=== PATIENT | female | born 1970 | race Hispanic/Latino ===

== ENCOUNTER → 2019-05-10 | Day surgery (SDC) | payer BC ==
[2019-05-08 11:12] LABS: INR 0.82; PROTHROMBIN TIME 11.8 seconds (11.9-14.5)
[2019-05-08 11:13] LABS: PARTIAL THROMBOPLASTIN TIME 29.1 seconds (23.8-35.5)
[~2019-05-10] MED LIST: ACETAMINOPHEN 1000 MG/100 ML 100 ML IV ONE; ALENDRONATE SOD70 MG PO; BUPIVACAINE HCL 0.5% INJ 30 ML VIAL INJ ONE; CALTRATE 600 W1 EACH PO; DEXAMETHASONE SOD PHOS INJ 4 MG/ML VIAL ONE; FENTANYL CITRATE/PF 100MCG/2 ML INJ ONE; KETOROLAC TROMETHAMINE 30 MG/ML VIAL ONE; LIDOCAINE HCL 2% LOCAL INJ 5 ML SDV VIAL INJ ONE; METOPROLOL TART25 MG PO; MIDAZOLAM HCL 2 MG/2 ML VIAL ONE; OMEGA FISH OIL PO; ONDANSETRON HCL INJ 2MG/ML 2ML 2 MG/ML VIAL ONE; PROPOFOL IV EMULSION 10 MG/ML 20 ML VIAL ONE; SEVOFLURANE INHAL SOLN 250 ML PEN BTL ONE; VITAMIN D400 UNIT PO
--- OUTSIDE RECORDS SUMMARY | 2019-05-10 10:18 | XMS REPORT ---
Author Author [facility] Address Unknown Phone Unavailable Care Team Providers Care Co Founder And Cto Name Role Phone Unavailable Unavailable Payers Payer Name Policy Type Policy Number Effective Date Expiration Date Problems This patient has no known problems. Allergies, Adverse Reactions, Alerts Allergy Name Allergy Type Status Severity Reaction(s) Onset Date Inactive Date Treating Clinician Comments No Known Allergies DA Active U 2014-05-08 00:00:00 Medications This patient has no known medications. Results Test Description Test Time Test Comments Text Results Atomic Results Result Comments - US TRANSVAGINAL NON OB 2019-03-13 10:43:00 Name: ELADIA DELACRUZ [facility] : 1970 Age/S: 48 / F [address] [facility] Unit #: [id number] Loc: [place] [address] Phys: Oscar Brown MD Acct: [id number] Dis Date: Status: REG CLI PHONE #: [phone] Exam Date: 03/13/2019 1020 FAX #: [phone] Reason: EXAMS: CPT CODE: [id number] [place] [address] HISTORY: R19.00. COMPARISON: CT abdomen and pelvis from December 11, 2018. Transabdominal and transvaginal (for better endometrial and ovarian evaluation) pelvic ultrasound color and Doppler flow evaluation and grayscale imaging. Patient is post hysterectomy. Urinary bladder is unremarkable. Right ovary is seen and measuring 6.2 x 3.8 x 4.7 cm. Color and Doppler flow with normal spectral waveform. Patient is left oophorectomy. No free fluid. IMPRESSION: Patient is post hysterectomy and left oophorectomy. The right ovary is unremarkable with color Doppler flow. No free fluid. at 1043 Reported and signed by: Jose Boateng M.D. CC: Jonnathan Juan MD; Oscar Brown Technologist: ROGELIO LEIJA RT(R),RDOH Trnscb Date/Time: 03/13/2019 (5123) [email or web address] Orig Print D/T: S: 03/13/2019 (9176) Probe: [id number] PAGE 1 Signed Report - US PELVIS COMPLETE 2019-03-13 10:43:00 Name: ELADIA DELACRUZ [facility] : 1970 Age/S: 48 / F [address] [facility] Unit #: [id number] Loc: [place] [address] Phys: Oscar Brown MD Acct: [id number] Dis Date: Status: REG CLI PHONE #: [phone] Exam Date: 03/13/2019 1020 FAX #: [phone] Reason: R19.00 EXAMS: CPT CODE: [id number] US PELVIS COMPLETE 92254 HISTORY: R19.00. COMPARISON: CT abdomen and pelvis from December 11, 2018. Transabdominal and transvaginal (for better endometrial and ovarian evaluation) pelvic ultrasound color and Doppler flow evaluation and grayscale imaging. Patient is post hysterectomy. Urinary bladder is unremarkable. Right ovary is seen and measuring 6.2 x 3.8 x 4.7 cm. Color and Doppler flow with normal spectral waveform. Patient is left oophorectomy. No free fluid. IMPRESSION: Patient is post hysterectomy and left oophorectomy. The right ovary is unremarkable with color Doppler flow. No free fluid. at 1043 Reported and signed by: Jose Boateng M.D. CC: Jonnathan Juan MD; Oscar Brown Technologist: ROGELIO LEIJA RT(R),BLAIROH Trnscb Date/Time: 03/13/2019 (2118) [email or web address] Orig Print D/T: S: 03/13/2019 (1044) Probe: PAGE 1 Signed Report SCR MAMM BILATERAL BRITTANY CAD DIGITAL 2019-01-02 12:49:26 - SCR MAMM BILATERAL BRITTANY CAD DIGITALBILATERAL DIGITAL SCREENING MAMMOGRAM 3D/2D WITH CAD: 01/02/2019CLINICAL: Asymptomatic. Digital breast tomosynthesis was performed in addition to routine CC and MLO views. Current mammographic images were evaluated by either a [employer] M-Vu or a [employer] ImageChecker CAD (computer aided detection system). Comparison is made to exams dated 09/30/2017 mammogram and 02/05/2016 mammogram - [facility]. There are scattered fibroglandular tissues in both breasts. No suspicious mass, architectural distortion, malignant type calcification, or lymph node abnormality detected. Breast architecture is stable compared to prior exams.IMPRESSION: NEGATIVEThere is no mammographic evidence of malignancy. Resume annual screening mammography in one year. Michael Franz M.D. ss/penrad:01/02/2019 12:49:26 Credit Administration Specialist: Lashanda BELLO, [facility] sent: BIRADS 1-2 Normal Mammogram BI-RADS: 1 Negative - CT ABD PELVIS W/CONT 2018-12-11 11:33:00 Name: ELADIA DELACRUZ [facility] : 1970 Age/S: 48 / F [address] [facility] Unit #: [id number] Loc: [facility] [place] [address] Phys: Deepak Maria MD Acct: [id number] Dis Date: Status: REG ER PHONE #: [phone] Exam Date: 12/11/2018 1122 FAX #: [phone] Reason: RLQ abd pain x 2 days EXAMS: CPT CODE: [id number] CT ABD PELVIS W/CONT 33242 HISTORY: Right lower quadrant pain for 2 days. COMPARISON: None available. CT of abdomen and pelvis with IV contrast: 100 mL of Isovue-370. Automated exposure control. CT of abdomen: The lung bases are clear. The hepatic parenchyma is enhancing homogeneously. No discrete mass. Patient is post cholecystectomy. The liver measured 17 cm in length. Unremarkable spleen. The stomach distends incompletely however it is normal. Pancreas is enhancing homogeneously. Unremarkable adrenals. Kidneys are free from hydroureteronephrosis. Homogeneous enhancement. Bilateral excretion. No pathologic adenopathy. Well-opacified abdominal and pelvic vasculature. No bowel obstruction or colitis or diverticulitis or enteritis. CT PELVIS: Poorly visualized appendix is normal. No inflammatory change. Pelvic bowel loops are unobstructed. High riding right ovary with cyst measuring approximately 4 cm with average Hounsfield unit measurement ranging up to 43. Left ovary is not seen. Patient is post hysterectomy. Unremarkable urinary bladder. No free fluid or free air or abscess. No pelvic pathologic adenopathy is noted. Subcutaneous tissues and the musculature are normal in appearance. No lytic or blastic lesions noted within the bony skeleton. DJD. IMPRESSION: Poorly visualized normal appendix. No bowel obstruction or colitis or diverticulitis or enteritis. 4 cm right ovarian cyst. The right ovary is high riding. Left ovary PAGE 1 Signed Report (CONTINUED) Name: ELADIA DELACRUZ [facility] : 1970 Age/S: 48 / F [address] [facility] Unit #: [id number] Loc: [place] [address] Phys: Deepak Maria MD Acct: [id number] Dis Date: Status: REG ER PHONE #: [phone] Exam Date: 12/11/2018 1122 FAX #: [phone] Reason: RLQ abd pain x 2 days EXAMS: CPT CODE: [id number] CT ABD PELVIS W/CONT 47864 <Continued> is not seen. Patient is post hysterectomy. No free fluid or free air or abscess. at 1133 Reported and signed by: Jose Boateng M.D. CC: Jonnathan Juan MD; Deepak Maria MD Technologist:Em Wellington CTDI: DLP: Trnscb Date/Time: 12/11/2018 (1133) [email or web address] Orig Print D/T: S: 12/11/2018 (1136) CTDI: DLP: PAGE 2 Signed Report COMPREHENSIVE METABOLIC PANEL 2018-12-11 11:22:00 SODIUM (test code=NA) 143 mmol/L 135-148 POTASSIUM (test code=K) 4.3 mmol/L 3.5-5.1 CHLORIDE (test code=CL) 107 mmol/L 101-109 CARBON DIOXIDE (test code=CO2) 31.3 mmol/L 21-32 ANION GAP (test code=GAP) 9 mmol/L 10-20 GLUCOSE (test code=GLU) 108 mg/dL 74-106 BLOOD UREA NITROGEN (test code=BUN) 13 mg/dL 3-21 CREATININE (test code=CREAT) 0.82 mg/dL 0.55-1.3 BUN/CREATININE RATIO (test code=BUN/CREA) 15.9 10-20 TOTAL PROTEIN (test code=PROT) 7.4 g/dL 6.5-8.4 ALBUMIN (test code=ALB) 3.5 g/dL 3.4-4.8 GLOBULIN (test code=GLOB) 3.9 G/DL 1-10 ALBUMIN/GLOBULIN RATIO (test code=A/G) 0.9 RATIO 0.75-1.50 CALCIUM (test code=CA) 9.0 mg/dL 8.4-10.2 BILIRUBIN TOTAL (test code=BILT) 0.50 mg/dL 0.0-1.0 SGOT/AST (test code=AST) 14 U/L 6-32 SGPT/ALT (test code=ALT) 38 U/L 12-78 Note: Change in REFERENCE RANGE due to new reagent method. ALKALINE PHOSPHATASE TOTAL (test code=ALKP) 71 U/L 38-126 CREATINE KINASE (CK)2018-12-11 11:22:00* Test Item Value Reference Range Comments CREATINE KINASE (CK) (test code=CK) 82 U/L 26-192 [id number] 11:22:00* Test Item Value Reference Range Comments CKMB (test code=CKMBT) 0.8 ng/mL 0.0-5.0 [id number] 11:22:00* Test Item Value Reference Range Comments TROPONIN-I (test code=TROPI) <0.015 ng/mL 0.00-0.056 COMPREHENSIVE METABOLIC [id number] 10:55:00* Test Item Value Reference Range Comments SODIUM (test code=NA) 143 mmol/L 135-148 POTASSIUM (test code=K) 4.3 mmol/L 3.5-5.1 CHLORIDE (test code=CL) 107 mmol/L 101-109 CARBON DIOXIDE (test code=CO2) 31.3 mmol/L 21-32 ANION GAP (test code=GAP) 9 mmol/L 10-20 GLUCOSE (test code=GLU) 108 mg/dL 74-106 BLOOD UREA NITROGEN (test code=BUN) 13 mg/dL 3-21 CREATININE (test code=CREAT) 0.82 mg/dL 0.55-1.3 BUN/CREATININE RATIO (test code=BUN/CREA) 15.9 10-20 TOTAL PROTEIN (test code=PROT) gram/dL 6.4-8.2 ALBUMIN (test code=ALB) g/dL 3.4-5.0 GLOBULIN (test code=GLOB) g/dL 2.7-4.2 ALBUMIN/GLOBULIN RATIO (test code=A/G) 0.75-1.50 CALCIUM (test code=CA) 9.0 mg/dL 8.4-10.2 BILIRUBIN TOTAL (test code=BILT) mg/dL 0.2-1.2 SGOT/AST (test code=AST) IUnit/L 15-37 SGPT/ALT (test code=ALT) U/L 10-69 ALKALINE PHOSPHATASE TOTAL (test code=ALKP) IUnit/L 45-117 CREATINE KINASE (CK)2018-12-11 10:55:00* Test Item Value Reference Range Comments CREATINE KINASE (CK) (test code=CK) IUnit/L 26-208 [id number] 10:55:00* Test Item Value Reference Range Comments CKMB (test code=CKMBT) ng/mL 0-6.0 [id number] 10:55:00* Test Item Value Reference Range Comments TROPONIN-I (test code=TROPI) ng/mL 0-0.045 CBC W/AUTO [id number] 10:43:00* Test Item Value Reference Range Comments WHITE BLOOD CELL (test code=WBC) 6.6 K/mm3 4.5-12.5 RED BLOOD CELL (test code=RBC) 4.68 mill/mm3 3.7-5.2 HEMOGLOBIN (test code=HGB) 14.2 gram/dL 11.5-15.5 HEMATOCRIT (test code=HCT) 42.9 % 36.0-46.0 MEAN CELL VOLUME (test code=MCV) 91.7 fL 80-98 MEAN CELL HGB (test code=MCH) 30.3 picogram 27.0-33.0 MEAN CELL HGB CONCETRATION (test code=MCHC) 33.1 gram/dL 33.0-36.0 RED CELL DISTRIBUTION WIDTH (test code=RDW) 12.4 % 11.6-16.2 RED CELL DISTRIBUTION WIDTH SD (test code=RDW-SD) 40.6 fL 39.1-52.0 PLATELET COUNT (test code=PLT) 257 K/mm3 150-450 MEAN PLATELET VOLUME (test code=MPV) 9.7 fL 6.7-11.0 NEUTROPHIL % (test code=NT%) 49.1 % 39.0-69.0 LYMPHOCYTE % (test code=LY%) 41.5 % 25.0-55.0 MONOCYTE % (test code=MO%) 7.7 % 0.0-10.0 EOSINOPHIL % (test code=EO%) 1.4 % 0.0-5.0 BASOPHIL % (test code=BA%) 0.3 % 0.0-1.0 NEUTROPHIL # (test code=NT#) 3.24 K/mm3 1.8-7.7 LYMPHOCYTE # (test code=LY#) 2.74 K/mm3 1.0-5.0 MONOCYTE # (test code=MO#) 0.51 K/mm3 0-0.8 EOSINOPHIL # (test code=EO#) 0.09 K/mm3 0.0-0.5 BASOPHIL # (test code=BA#) 0.02 K/mm3 0.0-0.2 - XR CHEST 1 [id number] 10:37:00 Name: ELADIA DELACRUZ [facility] : 1970 Age/S:48 /F [address] [facility] Unit#:[id number] Loc: [place] [address] Phys: Deepak Maria MD Dis Date: PHONE #: [phone] Status: REG ER FAX #: [phone] Exam Date: 12/11/2018 Reason: chest pain EXAMS: CPT CODE: [id number] XR CHEST 1 V 02589 HISTORY: Chest pain and chest pressure. COMPARISON: None available. No acute infiltrates, effusion or congestion is noted. Cardiomegaly. IMPRESSION: No acute infiltrates, effusion or congestion. at 1037 Reported and signed by: Jose Boateng M.D. CC: Deepak Maria MD Technologist: Em Wellington Trnscrpt Data: 12/11/2018 (1037) [email or web address] Orig Print D/T: S: 12/11/2018 (1040) PAGE 1 Signed Report
[2019-05-10] MEDS: CEFAZOLIN SOD 1 GM/NS 50ML 100 ML IV ONE (11:04)
[2019-05-10 13:45] VITALS: BP 123/76
--- NOTE | 2019-05-10 16:19 | Operative Report ---
DATE OF PROCEDURE: 05/10/2019 SURGEON: Mohan Pederson MD PREOPERATIVE DIAGNOSIS: Right carpal tunnel syndrome. POSTOPERATIVE DIAGNOSIS: Right carpal tunnel syndrome. PROCEDURE: Right carpal tunnel release. ANESTHESIA: General. INDICATIONS: The patient is a 48-year-old woman, who presents with right carpal tunnel syndrome, was taken to the operating room for right carpal tunnel release. PROCEDURE IN DETAIL: After induction of general anesthesia, the patient was placed on the operating table in supine position with the right arm abducted over a hand table. The right hand, wrist, and forearm were prepped and draped circumferentially in sterile fashion. A tourniquet was inflated over the upper arm. A small midline incision was created over the median palmar crease of the hand just distal to the distal flexor crease of the wrist. The subcutaneous fat was divided. The transverse carpal ligament was incised with a #15C blade until the underlying median nerve came into view. As the tax assistant retracted the skin edges, the transverse carpal ligament was then divided proximally and distally with scissors until the full length of the median nerve was exposed and decompressed within the carpal tunnel. The point of maximum compression of nerve appeared to be 2 cm distal to the distal flexor crease of the wrist where the ligament was at its thickest. More distally, the recurrent motor branch of the nerve was preserved within this fat pad and decompressed. The wound was copiously irrigated with bacitracin solution. Meticulous hemostasis was secured. Retraction was removed. The subcutaneous layer was closed with a 3-0 Vicryl stitch. The skin was closed with a 3-0 nylon stitch in a horizontal mattress fashion. The skin was then infiltrated with lidocaine. A dressing was applied. The hand was wrapped. The patient was awakened, extubated, taken to postanesthesia care unit in stable condition. No intraoperative complications were encountered. ESTIMATED BLOOD LOSS: Minimal. Mohan Pederson MD PP/MODL /[id number]
== END | disposition home or self-care (01) ==
LOC: OR 10:16
PROVIDERS: ATTEND Neurological Surgery
DX: G56.01 Carpal tunnel syndrome, right upper limb (principal); I10 Essential (primary) hypertension; K21.9 Gastro-esophageal reflux disease without esophagitis; J45.909 Unspecified asthma, uncomplicated; M81.0 Age-related osteoporosis without current pathological fracture; Z01.810 Encounter for preprocedural cardiovascular examination; Z01.812 Encounter for preprocedural laboratory examination; Z68.31 Body mass index [BMI] 31.0-31.9, adult
CPT/HCPCS: 36415; 64721; 85610; 85730; 93005; J0131; J0690; J1100; J1885; J2001; J2250; J2405; J2704; J3010